=== PATIENT | male | born 1945 | race Caucasian/White ===

== ENCOUNTER 2017-10-02 07:53 | Inpatient (IN) ==
[2017-10-02] MEDS ORDERED: 0.9 % Sodium Chloride 1,000 ML IVC ONE (08:20)
[2017-10-02] MEDS ORDERED: methylPREDNISolone 125 MG/2 ML VIAL IVP ONE (08:20)
[2017-10-02] MEDS ORDERED: Ipratropium/Albuterol Neb 3 ML IH STA ×2 (08:21→09:38)
--- NOTE | 2017-10-02 08:23 | Emergency Department Note ---
Disposition Clinical Impression: Acute exacerbation of chronic obstructive airways disease Disposition: Admitted As Inpatient Condition: Good Referrals: Melanie Garcia, HEELER [Primary Care Provider] - Forms: ED Satisfaction Letter Time of Disposition: 09:41 (Dr Souza) SOB HPI - General Chief Complaint: ED Shortness of Breath/Dyspnea Stated Complaint: shortness of breath Time Seen by Provider: 10/02/17 08:04 Source: patient Mode of arrival: EMS Limitations: no limitations Nursing Notes Reviewed: Yes Vital Signs Reviewed: Yes - History of Present Illness Pt Subjective Complaint: shortness of breath Onset (ago): unknown Severity: unable Consistency/Duration: constant Improves with: oxygen, bronchodilators Known history of: COPD Associated symptoms: Reports: cough, sputum production, palpitations, other ( The patient was seen and evaluated for cough approximately 10 days ago and was discharged home with antibiotics. In April he was admitted for COPD exacerbation and hospitalized for 3-5 days. There is questionable medical noncompliance secondary to patient passing within the past month. The patient does appear disheveled and unkept.). Denies: chest pain, pain with inspiration, fever, wheezing, orthopnea, lower extremity pain, polyuria, polydipsia, parasthesias, hemoptysis, diaphoresis, nausea/vomiting, syncope, abdominal pain, rash, sense of impending doom Treatment prior to arrival: oxygen, bronchodilator Cough present: Yes Cough Description: Involuntary Cough Frequency: Intermittent Sputum production: No - Related Data Home Medications Medication Instructions Recorded Confirmed Fluticasone/Salmeterol [Advair 2 puff IH BID 05/09/17 10/02/17 250-50 Diskus] Lisinopril [Zestril] 10 mg PO DAILY 05/09/17 10/02/17 Metformin HCl [Glucophage] 1,000 mg PO BID 05/09/17 10/02/17 diazePAM [Valium] 10 mg PO BID 05/09/17 10/02/17 Previous Rx's Medication Instructions Recorded Albuterol Sulfate [Albuterol 2 puff IH Q4HR PRN #1 hfa.aer.ad 05/13/17 Inhaler] Fluticasone/Salmeterol [Advair 1 each IH BID #1 blst.w.dev 09/22/17 250-50 Diskus] Allergies Allergy/AdvReac Type Severity Reaction Status Date / Time prednisone AdvReac Mild See Verified 05/09/17 07:36 Comments All systems ED: reviewed and negative except as stated. Review of Systems: As Per HPI Constitutional: Reports: weight change Past Medical History - Past Medical History Medical history: Reports: arthritis, COPD, coronary artery disease, diabetes, GERD, hyperlipidemia, hypertension, myocardial infarction, osteoporosis, other Surgical history: Reports: angioplasty/stent, cholecystectomy Psychiatric history: Reports: anxiety, depression - Social History Smoking Status: Current every day smoker Smokeless Tobacco Status: No Alcohol use: Reports: none Drug use: Reports: none Physical Exam - General Limitations: no limitations General appearance: in distress - Head Head exam: atraumatic, normocephalic, normal inspection - Eye Eye exam: Present: normal appearance, PERRL, EOMI - ENT ENT exam: normal exam, normal oropharynx, mucous membranes moist - Neck Neck exam: Present: normal inspection, full ROM, trachea midline - Chest Chest inspection: Present: normal inspection, symmetric chest wall rise - Respiratory Respiratory exam: Present: prolonged expiratory phase - Expanded Respiratory Exam Location: decreased breath sounds: Left, Right, Upper, Lower - Cardiovascular Cardiovascular exam: Present: tachycardia, normal heart sounds. Absent: JVD - Abdominal Exam Abdominal exam: Present: soft, Non-Tender. Absent: tenderness, distention, guarding, rebound, rigidity - Extremities Exam Extremities exam: Present: normal inspection, full ROM. Absent: tenderness, pedal edema - Neurological Exam Neurological exam: Present: alert, oriented X3, CN II-XII intact - Skin Skin exam: Present: warm, intact, diaphoresis, pallor Course - Reevaluation(s) Reevaluation #1: Moderate improvement of his respiratory status. He does have improved aeration on the left lung field and right upper lung field but still diminished on the right middle lower area. The patient will be given one more breathing treatment and will be reevaluated for inpatient admission. Time: 09:39 Vital Signs Temperature 98.8 F 10/02/17 07:56 Pulse Rate 115 10/02/17 07:56 Respiratory Rate 24 10/02/17 07:56 Blood Pressure 152/65 10/02/17 07:56 O2 Sat by Pulse Oximetry 94 10/02/17 07:56 Temperature 98.8 F 10/02/17 07:56 Pulse Rate 113 10/02/17 09:25 Respiratory Rate 18 10/02/17 09:25 Blood Pressure 152/93 10/02/17 09:25 O2 Sat by Pulse Oximetry 94 10/02/17 09:25 Oxygen Delivery Oxygen Delivery Nasal Cannula Shortness of Breath/Dyspnea - Differential Diagnosis Likely: acute exacerbation of chronic obstructive airways disease, congestive heart failure, pneumonia, pneumothorax, arrhythmia - Medical Records Medical records reviewed: Yes I reviewed the patient's medical records. - Lab Data Result diagrams: 10/02/17 08:53 10/02/17 08:53 Lab Results 10/02/17 10/02/17 10/02/17 Range/Units 08:52 08:53 08:53 WBC 27.2 H (4.3-11.1) K/mcL RBC 4.64 (4.19-5.50) M/mcL Hgb 10.7 L (12.9-16.9) g/dL Hct 36.5 L (37.5-50.1) % MCV 78.7 L (83.0-100.0) fL MCH 23.1 L (28.0-33.3) pg MCHC 29.3 L (31.6-35.5) g/dL RDW 15.9 H (11.5-14.5) % Plt Count 224 (140-400) K/mcL MPV 10.2 (9.4-12.4) fL Sample Site R Radial ABG pH 7.32 (7.32-7.45) pH Units ABG pCO2 58 H (35-45) mmHg ABG pO2 72 L (85-104) mmHg ABG HCO3 30 H (21-27) mEq/L ABG Total CO2 31 H (20-26) mEq/L ABG O2 Saturation 92 L (95-98) % ABG Base Excess 2 (-2 to 3) mEq/L Luis A Test Positive VBG Lactic Acid (0.5-2.2) mmol/L O2 Delivery Device Cannula Inspired O2 2.0 (1-15=lpm [id number]=%) Sodium 139 (136-145) mEq/L Potassium 4.6 (3.5-5.1) mEq/L Chloride 104 (98-107) mEq/L Carbon Dioxide 29 (23-29) mEq/L BUN 22 (8-23) mg/dL Creatinine 0.88 (0.70-1.30) mg/dL Est GFR ( Amer) > 60 (> 60) Est GFR (Non-Af Amer) > 60 (> 60) BUN/Creatinine Ratio 25 (6-26) Glucose 200 H (70-105) mg/dL Calculated Osmolality 297 (280-300) Lactic Acid (0.5-2.2) mmol/L Calcium 9.2 (8.6-10.3) mg/dL Troponin I < 0.03 (< 0.04) ng/mL B-Natriuretic Peptide (Less than 100) pg/mL 10/02/17 10/02/17 10/02/17 Range/Units 08:53 08:53 08:55 WBC (4.3-11.1) K/mcL RBC (4.19-5.50) M/mcL Hgb (12.9-16.9) g/dL Hct (37.5-50.1) % MCV (83.0-100.0) fL MCH (28.0-33.3) pg MCHC (31.6-35.5) g/dL RDW (11.5-14.5) % Plt Count (140-400) K/mcL MPV (9.4-12.4) fL Sample Site ABG pH (7.32-7.45) pH Units ABG pCO2 (35-45) mmHg ABG pO2 (85-104) mmHg ABG HCO3 (21-27) mEq/L ABG Total CO2 (20-26) mEq/L ABG O2 Saturation (95-98) % ABG Base Excess (-2 to 3) mEq/L Luis A Test VBG Lactic Acid 1.1 (0.5-2.2) mmol/L O2 Delivery Device Inspired O2 (1-15=lpm [id number]=%) Sodium (136-145) mEq/L Potassium (3.5-5.1) mEq/L Chloride (98-107) mEq/L Carbon Dioxide (23-29) mEq/L BUN (8-23) mg/dL Creatinine (0.70-1.30) mg/dL Est GFR ( Amer) (> 60) Est GFR (Non-Af Amer) (> 60) BUN/Creatinine Ratio (6-26) Glucose (70-105) mg/dL Calculated Osmolality (280-300) Lactic Acid 1.1 (0.5-2.2) mmol/L Calcium (8.6-10.3) mg/dL Troponin I (< 0.04) ng/mL B-Natriuretic Peptide 136 H (Less than 100) pg/mL - EKG Data EKG attestation: Yes I reviewed and interpreted this EKG. Rate: Reports: tachycardia Rhythm: Reports: NSR [place]/QRS: Reports: normal When compared to previous EKG there are: no significant changes (except rate) Interpretation: Reports: unchanged when compared to prior tracing (date) (), nonspecific ST-T wave changes Critical Care Time Critical Care Time: Yes Total Critical Care Time: 30 Attestation: Critical care performed: Time is exclusive of separately billable procedures. Time includes: direct patient care, patient reassessment, coordination of patient care, interpretation of data (laboratory data, radiology data, and respiratory data), review of patient's medical records, medical consultation and documentation of patient care. Procedures included in critical care time: Procedures excluded from critical care time:
[2017-10-02 08:54] LABS: ABG Base Excess 2 mEq/L (-2 to 3); ABG HCO3 30 mEq/L (21-27); ABG Oxygen Saturation 92 % (95-98); ABG PCO2 58 mmHg (35-45); ABG PH 7.32 pH Units (7.32-7.45); ABG PO2 72 mmHg (85-104); ABG TCO2 31 mEq/L (20-26)
[2017-10-02 08:56] LABS: Hematocrit 36.5 % (37.5-50.1); Hemoglobin 10.7 g/dL (12.9-16.9); Mean Corpuscular HGB Conc 29.3 g/dL (31.6-35.5); Mean Corpuscular Hemoglobin 23.1 pg (28.0-33.3); Mean Corpuscular Volume 78.7 fL (83.0-100.0); Mean Platelet Volume 10.2 fL (9.4-12.4); Platelet Count 224 K/mcL (140-400); Red Blood Count 4.64 M/mcL (4.19-5.50); Red Cell Distribution Width 15.9 % (11.5-14.5)
[2017-10-02 09:19] LABS: Troponin I < 0.03 ng/mL (< 0.04)
[2017-10-02] MEDS ORDERED: Levofloxacin 750 MG/150 ML 750 MG/150 ML BAG IVPB ONE (09:30)
[2017-10-02 09:38] LABS: BUN/Creatinine Ratio 25 (6-26); Blood Urea Nitrogen 22 mg/dL (8-23); Calcium 9.2 mg/dL (8.6-10.3); Carbon Dioxide 29 mEq/L (23-29); Chloride 104 mEq/L (98-107); Glucose 200 mg/dL (70-105); Osmolality,Calculated 297 (280-300); Potassium 4.6 mEq/L (3.5-5.1); Sodium 139 mEq/L (136-145); eGFR For African Americans > 60 (> 60); eGFR For Non-African Americans > 60 (> 60)
[2017-10-02 09:40] LABS: Bilirubin,Urine Negative (Negative); Blood,Urine Trace-lysed (Negative); Clarity,Urine Clear (Clear); Color,Urine Yellow (Yellow); Glucose,Urine (UA) 100 mg/dL (Normal); Ketones,Urine Negative (Negative); Leukocyte Esterase,Urine Negative (Negative); Nitrite,Urine Negative (Negative); Protein,Urine 100 mg/dL (Neg-Trace); Specific Gravity,Urine >= 1.030 (1.010-1.025); Urobilinogen,Urine Normal (Normal)
[2017-10-02 09:58] LABS: Bacteria,Urine Few per hpf (None-Few); Mucus,Urine Few (Few); RBC,Urine 0-3 per hpf (0-3); Squamous Epithelial Cell,Urine Few per lpf (None-Few); WBC,Urine 0-3 per hpf (0-3)
[2017-10-02 10:04] LABS: Lymphocytes # 0.5 K/mcL (0.6-4.6); Monocytes # 1.6 K/mcL (0.0-1.3)
[2017-10-02 10:05] LABS: Platelet Estimate Normal (Normal)
[2017-10-02] MEDS ORDERED: *HR* HYDROcodone/Acet 5/325 mg TABLET PO PRN (11:24)
[2017-10-02] MEDS ORDERED: Ketorolac 30 MG/ML VIAL IVP PRN (11:24)
[2017-10-02] MEDS ORDERED: Naloxone 0.4 MG/ML INJ IVP PRN (11:24)
[2017-10-02] MEDS ORDERED: Acetaminophen 325 MG TABLET PO PRN (11:24)
--- NOTE | 2017-10-02 12:44 | Internal Med History&Physical ---
Date of Encounter: 10/02/17 Time of Encounter: 12:10 Assessment and Plan (1) Acute exacerbation of chronic obstructive airways disease Current visit: Yes Status: Acute He was started on Levaquin and Solu-Medrol in emergency room. We will continue these. We will order chest CT to further evaluate. (2) Anemia Current visit: No Status: Chronic We will order anemia testing in a.m. Qualifiers: Anemia type: iron deficiency Iron deficiency anemia type: other iron deficiency Qualified Code(s): D50.8 - Other iron deficiency anemias (3) Diabetes mellitus Current visit: No Status: Chronic Will order hemoglobin A1c in a.m. Qualifiers: Diabetes mellitus type: type 2 Diabetes mellitus terminal system operator insulin use: without skilled nursing use Diabetes mellitus complication status: without complication Qualified Code(s): E11.9 - Type 2 diabetes mellitus without complications (4) Hypertension Current visit: Yes Status: Chronic Continue lisinopril and monitor blood pressure. Qualifiers: Hypertension type: essential hypertension Qualified Code(s): I10 - Essential (primary) hypertension Internal Medicine - H&P: HPI Chief complaint: Dyspnea Admitted From: Emergency Dept Plans for Post Hospital Care: Home History of present illness: Mr. Wilson is a 71 year old male who came to emergency room after developing worsening dyspnea after arising this morning. He reports dyspnea had onset approximately 2 weeks ago. He came to [facility] emergency room 07/22/2017 with dyspnea and was diagnosed with exacerbation of COPD and prescribed doxycycline for 5 days. He was also given Advair 250/50 and Ventolin inhalers. He reports a cough productive of clear sputum. He denies hemoptysis. He was evaluated emergency room today and felt to have exacerbation of COPD and was admitted to [facility] floor. His respiratory history is significant for having smoked since age 10 up to 5 packs per day. He has not had PFTs and does not use home oxygen. He has not been tested for sleep apnea. Past Med Surg Social Fam HX - Past Medical History Medical history: arthritis, COPD, coronary artery disease, diabetes, GERD, hyperlipidemia, hypertension, myocardial infarction, osteoporosis, other Psychiatric history: anxiety, depression - Past Surgical History Surgical History: angioplasty/stent, cholecystectomy - Social History Smoking Status: Current every day smoker Smokeless Tobacco Status: No Alcohol use: none Drug use: none - Family History Father Hx Family Cardiac Disorders: Yes (heart attack) Hx Family Respiratory Disorders: Yes (TB) Mother Hx Family Endocrine Disorder: Yes (DM) Internal Medicine - H&P: Meds Fluticasone/Salmeterol [Advair 250-50 Diskus] 2 puff IH BID 05/09/17 [History] Lisinopril [Zestril] 10 mg PO DAILY 05/09/17 [History] Metformin HCl [Glucophage] 1,000 mg PO BID 05/09/17 [History] diazePAM [Valium] 10 mg PO BID 05/09/17 [History] Albuterol Sulfate [Albuterol Inhaler] 2 puff IH Q4HR PRN #1 hfa.aer.ad 05/13/17 [Rx] Fluticasone/Salmeterol [Advair 250-50 Diskus] 1 each IH BID #1 blst.w.dev [Rx] 3 Allergy/AdvReac Type Severity Reaction Status Date / Time prednisone AdvReac Mild See Verified 05/09/17 07:36 Comments All Systems PM: A 10-system review of systems was performed and is negative for pertinent findings except as documented above in the HPI. Review of systems: Gen.: His weight has minimally decreased from 67.676 kg 08/08/2015 to 66.224 kg at present. Cardiovascular: He has history of hypertension. He has known ASHD status post [place] in 2009 with 2 stents placed at [facility]. He has not had further stress test or heart cath. He gets occasional discomfort in his chest on exertion. Denies heart failure DVT or pulmonary illness. Respiratory: As per history of present illness GI: He has GERD and had a cholecystectomy in the past. He denies disorders of his liver or exocrine pancreas. : He had kidney stone in the 1970s without recurrence. Denies other kidney bladder prostate disorders. Neurologic: Denies strokes or seizures. Endocrine: He was diagnosed with DM 2 in 1994. He has hyperlipidemia but no known thyroid disease. Hematology/oncology: He denies blood disorders or cancers. He has had anemia in the past. Psychiatric: He denies anxiety depression or other mental health issues. He states he uses Valium because had a "nervous breakdown" several years ago [place] skeletal: He has arthritis but no known gout or osteoporosis. - Constitutional Vitals: Temp Pulse Resp BP Pulse Ox 98.7 F 97 16 152/79 96 10/02/17 10:41 10/02/17 10:41 10/02/17 10:41 10/02/17 10:41 10/02/17 10:41 Exam: Gen.: He is a well-developed well-nourished male lying in bed who appears in no acute distress at present time HEENT: Head is atraumatic and normal cephalic. Eyes: EOMI. There is no scleral icterus. Mouth: Mucosa is moist. Neck: Supple and nontender. There is no thyromegaly or adenopathy noted. Heart: Regular without murmurs gallops or ectopics Lungs: He has diminished breath sounds diffusely. No wheezes or crackles are heard. Abdomen: Soft and nontender. No masses or guarding are noted. Extremities: There is no cyanosis edema or clubbing noted. Dorsalis pedis and posttibial pulses are 1-2 over 2 bilaterally. Neurologic: Mental status: He is talkative and seems to be a reliable historian. His answers seem accurate but mentation appears slowed. Cranial nerves: Smile is symmetric. Forehead wrinkles bilaterally. Tongue protrudes midline. EOMI. Motor: There is no pronator drift. Cerebellar: Finger to nose is intact bilaterally. Skin: Warm and dry. Hygiene is poor Internal Med - H&P Results - Labs CBC & Chem 7: 10/02/17 08:53 10/02/17 08:53
[2017-10-02] MEDS: *HR* Metformin 500 MG TABLET PO SCH ×2 (13:44→20:19)
[2017-10-02] MEDS ORDERED: NON-FORMULARY MEDICATION 1 EACH EACH (Fluticasone/Salmeterol [Advair 250-50 Diskus] 1 EACH IH SCH (21:00)
[2017-10-02] MEDS: Budesonide/Formoterol 80/4.5 MDI IH SCH ×2 (21:52→21:57)
[2017-10-03 06:34] LABS: Basophils % 0.1 %; Hematocrit 30.4 % (37.5-50.1); Immature Granulocytes % 0.5 % (0-4); Lymphocytes % 7.4 %; Mean Corpuscular HGB Conc 29.6 g/dL (31.6-35.5); Mean Corpuscular Hemoglobin 22.8 pg (28.0-33.3); Mean Corpuscular Volume 77.2 fL (83.0-100.0); Mean Platelet Volume 10.4 fL (9.4-12.4); Monocytes # 0.9 K/mcL (0.0-1.3); Monocytes % 6.8 %; Neutrophils # 11.3 K/mcL (1.6-8.9); Platelet Count 205 K/mcL (140-400); Red Blood Count 3.94 M/mcL (4.19-5.50); Red Cell Distribution Width 15.9 % (11.5-14.5); Segmented Neutrophils % 85.2 %
[2017-10-03] MEDS: Lisinopril 20 MG TABLET PO SCH (08:07)
[2017-10-03] MEDS: *HR* Metformin 500 MG TABLET PO SCH ×2 (08:08→17:33)
[2017-10-03] MEDS: diazePAM 5 MG TABLET PO SCH (08:08)
--- NOTE | 2017-10-03 10:06 | Internal Med Progress Note ---
Date of Encounter: 10/03/17 Time of Encounter: 09:55 - Assessment and plan (1) Pneumonia Current Visit: Yes Status: Acute Assessment and plan: October 03. Continue Levaquin. Qualifiers: Pneumonia type: due to unspecified organism Laterality: bilateral Lung location: lower lobe of lung Qualified Code(s): J18.1 - Lobar pneumonia, unspecified organism (2) Acute exacerbation of chronic obstructive airways disease Current Visit: Yes Status: Acute Assessment and plan: October 03. Continue Levaquin. Will give lactobacillus and prednisone. We will check room air oximetry on 6 minute walk in a.m. (3) Anemia Current Visit: No Status: Chronic Assessment and plan: October 03. Anemia testing pending. Qualifiers: Anemia type: iron deficiency Iron deficiency anemia type: other iron deficiency Qualified Code(s): D50.8 - Other iron deficiency anemias (4) Diabetes mellitus Current Visit: No Status: Chronic Assessment and plan: October 03. Hemoglobin A1c pending. Qualifiers: Diabetes mellitus type: type 2 Diabetes mellitus nursing home insulin use: without choral teacher use Diabetes mellitus complication status: without complication Qualified Code(s): E11.9 - Type 2 diabetes mellitus without complications (5) Hypertension Current Visit: Yes Status: Chronic Assessment and plan: October 03. Continue lisinopril and monitor blood pressure. Qualifiers: Hypertension type: essential hypertension Qualified Code(s): I10 - Essential (primary) hypertension (6) Aortic aneurysm Current Visit: Yes Status: Chronic Assessment and plan: October 03. Abdominal CT showed 3.2 cm AAA. Recommendation for repeat scan in 3 years. Qualifiers: Aortic location: abdominal aorta Presence of rupture: without rupture Qualified Code(s): I71.4 - Abdominal aortic aneurysm, without rupture - Subjective Interval history: October 03. He has no new complaints and feels better. - Constitutional Vitals: Temp Pulse Resp BP Pulse Ox 97.7 F 77 16 130/69 98 10/03/17 06:56 10/03/17 06:56 10/03/17 06:56 10/03/17 06:56 10/03/17 06:56 Exam: He is resting comfortably in bed and appears in no acute distress. His affect is bright and cheerful. I reviewed his medications. I discussed pertinent lab results and CT report findings with him. Internal Medicine: Result - Labs CBC & Chem 7: 10/03/17 06:00 10/02/17 08:53 Labs: Short CBC 10/03/17 Range/Units 06:00 WBC 13.3 H D (4.3-11.1) K/mcL Hgb 9.0 L D (12.9-16.9) g/dL Hct 30.4 L (37.5-50.1) % Plt Count 205 (140-400) K/mcL Neutrophils # 11.3 H (1.6-8.9) K/mcL - ABG Interpretation ABG results: ABG ABG pH 7.32 pH Units (7.32-7.45) 10/02/17 08:52 ABG pCO2 58 mmHg (35-45) H 10/02/17 08:52 ABG pO2 72 mmHg (85-104) L 10/02/17 08:52 ABG O2 Saturation 92 % (95-98) L 10/02/17 08:52 - Impressions Impressions Chest CT 10/02/17 12:53 IMPRESSION: 1. Multifocal pneumonia in the lower lungs 2. Pulmonary emphysema 3. Calcific Coronary atherosclerosis 4. Nonobstructing right nephrolithiasis 5. Stable left adrenal nodule compatible with an adenoma 6. Colonic diverticulosis 7. Prostatic enlargement 8. Stable 3.2 cm abdominal aortic aneurysm RECOMMENDATIONS: Managing Abdominal Aortic Aneurysms 2.6-2.9 cm: Every 5 years* 3.0-3.4 cm: Every 3 years. 3.5-3.9 cm: Every 1 year. 4.0-4.4 cm: Every 1 year. Recommend vascular consultation. 4.5-5.4 cm: Every 6 months. Recommend vascular consultation. Greater than or equal to 5.5 cm: Referral to vascular surgeon. *For abdominal aortas with maximum diameter of 2.6-2.9 cm meeting criteria for AAA (>50% of proximal normal segment). Reference: J Vasc Surg. 2009 Feb;50(4 Suppl):S2-49 D/ / Jignesh Burns MD / Jignesh Burns MD Interpreting Provider: Jignesh Burns MD Abdomen/Pelvis CT 10/02/17 12:54 IMPRESSION: 1. Multifocal pneumonia in the lower lungs 2. Pulmonary emphysema 3. Calcific Coronary atherosclerosis 4. Nonobstructing right nephrolithiasis 5. Stable left adrenal nodule compatible with an adenoma 6. Colonic diverticulosis 7. Prostatic enlargement 8. Stable 3.2 cm abdominal aortic aneurysm RECOMMENDATIONS: Managing Abdominal Aortic Aneurysms 2.6-2.9 cm: Every 5 years* 3.0-3.4 cm: Every 3 years. 3.5-3.9 cm: Every 1 year. 4.0-4.4 cm: Every 1 year. Recommend vascular consultation. 4.5-5.4 cm: Every 6 months. Recommend vascular consultation. Greater than or equal to 5.5 cm: Referral to vascular surgeon. *For abdominal aortas with maximum diameter of 2.6-2.9 cm meeting criteria for AAA (>50% of proximal normal segment). Reference: J Vasc Surg. 2008;50(4 Suppl):S2-49 D/ / Jignesh Burns MD / Jignesh Burns MD Interpreting Provider: Jignesh Burns MD Consult Discharge Plan - Plan Referrals: Melanie Garcia, DIET COUNSELOR [Primary Care Provider] - 1 week
[2017-10-03 10:26] LABS: % Iron Saturation 3 % (20-55); Ferritin 31 ng/ml (20-250); Iron 10 mcg/dL (65-175); Transferrin 245 mg/dL (203-362)
[2017-10-03] MEDS: Budesonide/Formoterol 80/4.5 MDI IH SCH ×2 (10:33→21:54)
[2017-10-03 10:53] LABS: Folate 15.8 ng/mL (3.0-16.0)
[2017-10-03] MEDS ORDERED: Levofloxacin 500 MG/100 ML 500 MG/100 ML BAG IVPB SCH (11:00)
[2017-10-03 14:05] LABS: Estimated Average Glucose 143 mg/dl; Hemoglobin A1C 6.6 %
[2017-10-03] MEDS ORDERED: D5% in Water 1,000 ML IVC PRN (15:32)
[2017-10-03] MEDS ORDERED: *HR* Dextrose 50 % in Water (Syg) 50 ML SYRINGE IVP PRN (15:32)
[2017-10-03] MEDS ORDERED: Dextrose Gel 15 GM/37.5 ML TUBE PO PRN ×2 (15:32)
[2017-10-03] MEDS ORDERED: Iron Sucrose Complex 400 MG in 0.9 % Sodium Chloride 250 ML IVPB ONE (15:59)
[2017-10-03] MEDS ORDERED: Cyanocobalamin (B-12) 1,000 MCG/ML VIAL IM ONE (15:59)
[2017-10-03] MEDS: Insulin LISPRO 300 UNITS/3 ML VIAL SQ SCH (17:34)
[2017-10-03] MEDS: predniSONE 10 MG TABLET PO SCH (17:34)
[2017-10-03] MEDS: Lactobacillus 1 EACH CAP.SPRINK PO SCH (20:59)
[2017-10-04] MEDS ORDERED: *HR* Enoxaparin 40 MG/0.4 ML SYRINGE SQ SCH (06:00)
[2017-10-04 06:30] LABS: Basophils % 0.3 %; Eosinophils # 0.1 K/mcL (0.0-0.6); Eosinophils % 0.8 %; Hematocrit 30.5 % (37.5-50.1); Hemoglobin 8.9 g/dL (12.9-16.9); Immature Granulocytes % 0.5 % (0-4); Lymphocytes # 1.3 K/mcL (0.6-4.6); Lymphocytes % 13.8 %; Mean Corpuscular HGB Conc 29.2 g/dL (31.6-35.5); Mean Corpuscular Hemoglobin 22.9 pg (28.0-33.3); Mean Corpuscular Volume 78.4 fL (83.0-100.0); Mean Platelet Volume 10.1 fL (9.4-12.4); Monocytes # 0.6 K/mcL (0.0-1.3); Monocytes % 6.5 %; Neutrophils # 7.4 K/mcL (1.6-8.9); Platelet Count 205 K/mcL (140-400); Red Blood Count 3.89 M/mcL (4.19-5.50); Red Cell Distribution Width 15.9 % (11.5-14.5); Segmented Neutrophils % 78.1 %
[2017-10-04 06:42] VITALS: BP 149/81
[2017-10-04] MEDS: Insulin LISPRO 300 UNITS/3 ML VIAL SQ SCH (07:59)
--- NOTE | 2017-10-04 07:59 | Electrocardiograph Report ---
[address] [id number] Test Date: 2017-10-02 Pat Name: Javan Wilson Department: [id number] Room: [facility] Gender: M Machine Burrer: [id number] : 1945 Requested By: Raf Bowles Order Number: [id number] Reading MD: Riley Hurley Measurements Intervals [place] Rate: 115 P: [place]: 0 QRS: 79 QRSD: 108 T: 89 QT: 291 QTc: 359 Interpretive Statements SINUS TACHYCARDIA Intraventricular conduction delay MODERATE T-WAVE ABNORMALITY, CONSIDER INFERIOR ISCHEMIA Electronically Signed On 10-04-2017 7:58:04 EDT by Riley Hurley
[2017-10-04] MEDS: Lisinopril 20 MG TABLET PO SCH (09:11)
[2017-10-04] MEDS: *HR* Metformin 500 MG TABLET PO SCH (09:11)
[2017-10-04] MEDS: diazePAM 5 MG TABLET PO SCH (09:11)
[2017-10-04] MEDS: Lactobacillus 1 EACH CAP.SPRINK PO SCH (09:11)
[2017-10-04] MEDS: predniSONE 10 MG TABLET PO SCH (09:12)
--- NOTE | 2017-10-04 09:14 | Discharge Summary ---
Date of Encounter: 10/04/17 Time of Encounter: 08:55 - Discharge Diagnosis (1) Pneumonia Priority: Primary Status: Acute Qualifiers: Pneumonia type: due to unspecified organism Laterality: bilateral Lung location: lower lobe of lung Qualified Code(s): J18.1 - Lobar pneumonia, unspecified organism (2) Acute exacerbation of chronic obstructive airways disease Priority: Secondary Status: Acute (3) Anemia Priority: Secondary Status: Chronic Qualifiers: Anemia type: iron deficiency Iron deficiency anemia type: other iron deficiency Qualified Code(s): D50.8 - Other iron deficiency anemias (4) Diabetes mellitus Priority: Secondary Status: Chronic Qualifiers: Diabetes mellitus type: type 2 Diabetes mellitus exterminator termite insulin use: without exterminator termite use Diabetes mellitus complication status: without complication Qualified Code(s): E11.9 - Type 2 diabetes mellitus without complications (5) Hypertension Priority: Secondary Status: Chronic Qualifiers: Hypertension type: essential hypertension Qualified Code(s): I10 - Essential (primary) hypertension (6) Aortic aneurysm Priority: Secondary Status: Chronic Qualifiers: Aortic location: abdominal aorta Presence of rupture: without rupture Qualified Code(s): I71.4 - Abdominal aortic aneurysm, without rupture Hospital course: Mr. Wilson is a 72 year old male who came to emergency room after developing worsening dyspnea after arising this morning. He reports dyspnea had onset approximately 2 weeks ago. He came to [facility] emergency room 07/22/2017 with dyspnea and was diagnosed with exacerbation of COPD and prescribed doxycycline for 5 days. He was also given Advair 250/50 and Ventolin inhalers. He reports a cough productive of clear sputum. He denies hemoptysis. He was evaluated emergency room today and felt to have exacerbation of COPD and was admitted to [facility] floor. Initial orders were written by the emergency room physician. I saw him on October 02 and performed a history and physical. I ordered chest, abdomen, and pelvis CT for further evaluation. There were bilateral infiltrates seen. No other worrisome pathology was noted. A 3.2 cm AAA was noted. Recommendation for three-year follow-up was made. He was placed on Levaquin and had clinical improvement with WBC normalizing the day of discharge and resolution of left shift on differential. He will continue with antibiotic and probiotic for 3 additional days at discharge. Room air oximetry showed saturation decreasing to 87% on ambulation. He became dyspneic and required reinstitution of oxygen immediately for safety and comfort. He will continue on oxygen at discharge at 2 L/m by nasal cannula with portable gas and concentrator. Qualifying diagnosis for this is COPD with hypoxemia. Anemia testing showed iron 10, transferrin saturation 3%, transferrin 245, ferritin 31, B12 139, and folate 15.8. He received a B12 injection and IV ferrous sucrose. He will continue with oral B12, ferrous sulfate, and vitamin C at discharge. On October 04 he was stable for discharge home. He will follow with his PCP within 1 week. - Time Spent with Patient Total time spent providing and/or coordinating discharge services: - Discharge Medications Prescriptions: Ascorbic Acid [Vitamin C] 500 mg PO DAILY #30 tablet Cyanocobalamin (B-12) [Vitamin B12] 1,000 mcg PO DAILY #30 tablet Ferrous Sulfate 325 mg PO DAILY #30 tablet Lactobacillus [Culturelle] 1 each PO BID #6 cap.sprink levoFLOXacin [Levaquin] 500 mg PO DAILY #3 tablet Home Medications: Fluticasone/Salmeterol [Advair 250-50 Diskus] 2 puff IH BID 05/09/17 [History] Lisinopril [Zestril] 10 mg PO DAILY 05/09/17 [History] Metformin HCl [Glucophage] 1,000 mg PO BID 05/09/17 [History] Albuterol Sulfate [Albuterol Inhaler] 2 puff IH Q4HR PRN #1 hfa.aer.ad 05/13/17 [Rx] Fluticasone/Salmeterol [Advair 250-50 Diskus] 1 each IH BID #1 blst.w.dev [Rx] Ascorbic Acid [Vitamin C] 500 mg PO DAILY #30 tablet 10/04/17 [Rx] Cyanocobalamin (B-12) [Vitamin B12] 1,000 mcg PO DAILY #30 tablet 10/04/17 [Rx] Ferrous Sulfate 325 mg PO DAILY #30 tablet 10/04/17 [Rx] Lactobacillus [Culturelle] 1 each PO BID #6 cap.sprink 10/04/17 [Rx] diazePAM [Valium] 5 mg PO DAILY 30 Days #15 10/04/17 [Rx] levoFLOXacin [Levaquin] 500 mg PO DAILY #3 tablet 10/04/17 [Rx] Allergies/Adverse Reactions: 3 Allergy/AdvReac Type Severity Reaction Status Date / Time prednisone AdvReac Mild See Verified 05/09/17 07:36 Comments Date of admission: 10/03/17 10:14 Primary care physician: Melanie Garcia CNP - Constitutional Vitals: Temp Pulse Resp BP Pulse Ox 98.8 F 77 17 149/81 94 10/04/17 06:00 10/04/17 06:00 10/04/17 06:00 10/04/17 06:00 10/04/17 08:35 - Patient Status Disposition: Home, Self-Care Condition: Good Overall status at discharge: patient is progressing back to baseline - Discharge Instructions Follow Up With: Melanie Garcia CNP [Primary Care Provider] - 1 week - Diet and Activity Activity: resume usual activities as tolerated, wear oxygen at all times Diet: diabetic diet
[2017-10-04] MEDS: Budesonide/Formoterol 80/4.5 MDI IH SCH (10:43)
== END 2017-10-04 13:00 | disposition home or self-care (01) | DRG 190 ==
LOC: EMEROOPIK 07:53 → INPPIK 07:53
PROVIDERS: ADMIT Internal Medicine; ATTEND Internal Medicine

== ENCOUNTER 2018-06-26 19:30 | Observation (INO) ==
--- NOTE | 2018-06-26 19:31 | Emergency Department Note ---
Disposition Clinical Impression: Hematuria, Vertigo Disposition: Home, Self-Care Condition: Good Instructions: Vertigo (ED), Acute Hematuria (ED) Referrals: Melanie Garcia [facility]ERIFFS [Primary Care Provider] - (Call Friday for appointment) Forms: ED Satisfaction Letter Time of Disposition: 21:57 Altered Mental Status HPI - General Chief Complaint: ED Altered Mental Status Stated Complaint: altered mental status Time Seen by Provider: 06/26/18 19:31 Source: patient, EMS Mode of arrival: EMS Limitations: no limitations Nursing Notes Reviewed: Yes Vital Signs Reviewed: Yes - History of Present Illness HPI Narrative: 72-year-old gentleman is brought in by ambulance today for dizziness. He states he fell at the world was spinning was off balance and he threw up once while he was at the [facility] patient had to buy some cigarettes. He states prior to that he had not felt too bad until he was driving. He said episodes of vertigo in the past says never had them worked up before. He states is not feeling that way now. He states he has had some diarrhea and has been appear for the last couple of weeks off and on for the abdominal pain and not feeling well. They will come up with much. He had negative CT of his abdomen pelvis a few weeks ago. MD complaint: altered mental status - Related Data Home Medications Medication Instructions Recorded Confirmed Lisinopril [Zestril] 10 mg PO DAILY 05/09/17 06/20/18 Metformin HCl [Glucophage] 1,000 mg PO BID 05/09/17 06/20/18 Previous Rx's Medication Instructions Recorded diazePAM [Valium] 5 mg PO DAILY 30 Days #15 10/04/17 Albuterol Sulfate [Albuterol 2 puff IH Q6HR PRN #1 hfa.aer.ad 06/20/18 Inhaler] Azithromycin [Azithromycin 6-Tab 250 mg PO PER PKG DI #6 tab 06/20/18 Pack] Brompheniramine/Pseudoephed/Dm 5 ml PO Q4-6H PRN #120 syrup 06/20/18 [Bromfed Dm Cough Syrup] Cetirizine HCl [Zyrtec] 10 mg PO DAILY #14 tablet 06/20/18 Allergies Allergy/AdvReac Type Severity Reaction Status Date / Time prednisone AdvReac Mild See Verified 06/16/18 13:38 Comments Review of Systems: All other systems are negative except as noted/marked Chart generated with voice recognition software Nursing notes reviewed Old records reviewed Past Medical History - Past Medical History Attestation: Yes The following information was validated with the patient. Source: patient, old records reviewed, nursing notes reviewed Medical history: Reports: arthritis, COPD, coronary artery disease, diabetes, GERD, hyperlipidemia, hypertension, myocardial infarction, osteoporosis, other (Diverticulosis) Surgical history: Reports: angioplasty/stent, cholecystectomy Psychiatric history: Reports: anxiety, depression - Social History Smoking Status: Current every day smoker Smokeless Tobacco Status: No Alcohol use: Reports: none Drug use: Reports: none Physical Exam Physical exam General: NAD, VSS Head: normocephalic, atraumatic Eyes: EOMI, PERRLA no nystagmus mouth: moist mucous membranes Neck: NO CLA, Supple Chest wall: normal rise, no crepitus, no deformity noted Lungs: moving air well, no distress Heart: RRR, Abd: soft, mild tenderness diffusely this is not a surgical abdomen BS normal : deferred MSK: strength equal in all four extremities Ext: moves all four extremities, no obvious deformities Skin: cap refill normal, warm, dry neuro : CN2-12 grossly intact, A&Ox3 GCS 15 Psych: normal affect, not anxious Course Vital Signs Temperature 98.1 F 06/26/18 19:31 Pulse Rate 85 06/26/18 19:31 Respiratory Rate 22 06/26/18 19:31 Blood Pressure 97/55 06/26/18 19:31 O2 Sat by Pulse Oximetry 94 06/26/18 19:31 Temperature 98.1 F 06/26/18 19:31 Pulse Rate 84 06/26/18 21:28 Respiratory Rate 24 06/26/18 21:28 Blood Pressure 113/61 06/26/18 21:28 O2 Sat by Pulse Oximetry 97 06/26/18 21:28 Oxygen Delivery Oxygen Delivery Room Air Altered Mental Status - MDM Narrative Medical decision making narrative: On arrival patient was alert and oriented appropriate answering questions combined a little bit of diffuse abdominal pain but had no pinpoint tenderness in his abdomen. He has been sick for couple weeks and he was having some episodes of what sounds like vertigo and then he threw up. She states since he threw up he has been feeling better. We did a workup today to rule out any other cause of altered mental status as the EMS stated when they first arrived he was confused as to where his car was running in his keys were in his pocket. He has not been confused for us here. He is unsteady on his feet while we have been reassessing him. He was able to get up and go to the bedside commode and then stand up to urinate and the urinal. He does have some hematuria and we will discuss this and have him follow-up with his primary care physician about this. Otherwise his lab work is essentially unremarkable. He is alert and oriented and appropriate at this time I think the fiber him to go home I do not see any obvious life-threatening illness at this time. He is calling his son to come get him. The patient to try to walk and he got very dizzy again. He had not been complaining of dizziness they will time he been here. We are him some meclizine and had him lay back down. The plan decided is probably best for him to stay tonight and take his dizziness under control as I did not want him to go home on meclizine and be driving and be drowsy. Patient was agreeable with this. I spoke with Dr. Sneed on-call hospitalist this evening who agreed to keep the patient overnight. - Medical Records Medical records reviewed: Yes I reviewed the patient's medical records. - Lab Data Lab results reviewed: Yes I reviewed the patient's lab results. Result diagrams: 06/26/18 19:56 06/26/18 19:56 Lab Results 06/26/18 06/26/18 06/26/18 Range/Units 19:51 19:56 19:56 WBC 10.2 (4.3-11.1) K/mcL RBC 4.75 (4.19-5.50) M/mcL Hgb 12.4 L (12.9-16.9) g/dL Hct 39.4 (37.5-50.1) % MCV 82.9 L (83.0-100.0) fL MCH 26.1 L (28.0-33.3) pg MCHC 31.5 L (31.6-35.5) g/dL RDW 13.5 (11.5-14.5) % Plt Count 223 (140-400) K/mcL MPV 10.1 (9.4-12.4) fL Immature Gran % 0.4 (0-4) % Seg Neutrophils % 90.2 % Lymphocytes % 4.9 % Monocytes % 4.0 % Eosinophils % 0.2 % Basophils % 0.3 % Neutrophils # 9.2 H (1.6-8.9) K/mcL Lymphocytes # 0.5 L (0.6-4.6) K/mcL Monocytes # 0.4 (0.0-1.3) K/mcL Eosinophils # 0.0 (0.0-0.6) K/mcL Basophils # 0.0 (0.0-0.2) K/mcL PT 13.7 H (9.4-12.1) Seconds INR 1.2 APTT 31.4 (26.0-36.0) Seconds Sample Site R Radial ABG pH 7.41 (7.32-7.45) pH Units ABG pCO2 43 (35-45) mmHg ABG pO2 60 L (85-104) mmHg ABG HCO3 27 (21-27) mEq/L ABG Total CO2 29 H (20-26) mEq/L ABG O2 Saturation 91 L (95-98) % ABG Base Excess 2 (-2 to 3) mEq/L Luis A Test Positive O2 Delivery Device Room Air Sodium (136-145) mEq/L Potassium (3.5-5.1) mEq/L Chloride (98-107) mEq/L Carbon Dioxide (23-29) mEq/L BUN (8-23) mg/dL Creatinine (0.70-1.30) mg/dL Est GFR ( Amer) (> 60) Est GFR (Non-Af Amer) (> 60) BUN/Creatinine Ratio (6-26) Glucose (70-105) mg/dL Calculated Osmolality (280-300) Lactic Acid (0.5-2.2) mmol/L Calcium (8.6-10.3) mg/dL Magnesium (1.6-2.6) mg/dL Total Bilirubin (0.3-1.0) mg/dL Direct Bilirubin (0.0-0.2) mg/dL Indirect Bilirubin (0.0-1.2) mg/dL AST (13-39) Units/L ALT (7-52) Units/L Alkaline Phosphatase (34-104) Units/L Ammonia (16-53) mcmol/L Troponin I (< 0.04) ng/mL Serum Total Protein (6.4-8.9) g/dL Albumin (3.5-5.7) g/dL Globulin (2.4-3.5) g/dL Albumin/Globulin Ratio (1.1-2.2) Lipase (11-82) Units/L Urine Color (Yellow) Urine Clarity (Clear) Urine pH (5.0-8.0) pH Units Ur Specific [place] (1.010-1.025) Urine Protein (Neg-Trace) mg/dL Urine Glucose (UA) (Normal) mg/dL Urine Ketones (Negative) mg/dL Urine Blood (Negative) Urine Nitrite (Negative) Urine Bilirubin (Negative) Urine Urobilinogen (Normal) mg/dL Ur Leukocyte Esterase (Negative) Urine Microscopic RBC (0-3) per hpf Ur Culture Indicated? (NO) Salicylates (15.0-30.0) mg/dL Acetaminophen (10-20) mcg/mL Ur Drug Screen Interp Ethyl Alcohol (Less than 10) mg/dL 06/26/18 06/26/18 06/26/18 Range/Units 19:56 19:56 19:56 WBC (4.3-11.1) K/mcL RBC (4.19-5.50) M/mcL Hgb (12.9-16.9) g/dL Hct (37.5-50.1) % MCV (83.0-100.0) fL MCH (28.0-33.3) pg MCHC (31.6-35.5) g/dL RDW (11.5-14.5) % Plt Count (140-400) K/mcL MPV (9.4-12.4) fL Immature Gran % (0-4) % Seg Neutrophils % % Lymphocytes % % Monocytes % % Eosinophils % % Basophils % % Neutrophils # (1.6-8.9) K/mcL Lymphocytes # (0.6-4.6) K/mcL Monocytes # (0.0-1.3) K/mcL Eosinophils # (0.0-0.6) K/mcL Basophils # (0.0-0.2) K/mcL PT (9.4-12.1) Seconds INR APTT (26.0-36.0) Seconds Sample Site ABG pH (7.32-7.45) pH Units ABG pCO2 (35-45) mmHg ABG pO2 (85-104) mmHg ABG HCO3 (21-27) mEq/L ABG Total CO2 (20-26) mEq/L ABG O2 Saturation (95-98) % ABG Base Excess (-2 to 3) mEq/L Luis A Test O2 Delivery Device Sodium 134 L (136-145) mEq/L Potassium 4.5 (3.5-5.1) mEq/L Chloride 97 L (98-107) mEq/L Carbon Dioxide 31 H (23-29) mEq/L BUN 13 (8-23) mg/dL Creatinine 0.94 (0.70-1.30) mg/dL Est GFR ( Amer) > 60 (> 60) Est GFR (Non-Af Amer) > 60 (> 60) BUN/Creatinine Ratio 14 (6-26) Glucose 221 H (70-105) mg/dL Calculated Osmolality 285 (280-300) Lactic Acid (0.5-2.2) mmol/L Calcium 8.8 (8.6-10.3) mg/dL Magnesium 1.1 L (1.6-2.6) mg/dL Total Bilirubin 0.8 (0.3-1.0) mg/dL Direct Bilirubin 0.1 (0.0-0.2) mg/dL Indirect Bilirubin 0.7 (0.0-1.2) mg/dL AST 10 L (13-39) Units/L ALT 7 (7-52) Units/L Alkaline Phosphatase 72 (34-104) Units/L Ammonia 39 (16-53) mcmol/L Troponin I < 0.03 (< 0.04) ng/mL Serum Total Protein 6.7 (6.4-8.9) g/dL Albumin 3.5 (3.5-5.7) g/dL Globulin 3.2 (2.4-3.5) g/dL Albumin/Globulin Ratio 1.1 (1.1-2.2) Lipase (11-82) Units/L Urine Color (Yellow) Urine Clarity (Clear) Urine pH (5.0-8.0) pH Units Ur Specific [place] (1.010-1.025) Urine Protein (Neg-Trace) mg/dL Urine Glucose (UA) (Normal) mg/dL Urine Ketones (Negative) mg/dL Urine Blood (Negative) Urine Nitrite (Negative) Urine Bilirubin (Negative) Urine Urobilinogen (Normal) mg/dL Ur Leukocyte Esterase (Negative) Urine Microscopic RBC (0-3) per hpf Ur Culture Indicated? (NO) Salicylates (15.0-30.0) mg/dL Acetaminophen (10-20) mcg/mL Ur Drug Screen Interp Ethyl Alcohol < 10 (Less than 10) mg/dL 06/26/18 06/26/18 06/26/18 Range/Units 19:58 19:58 20:35 WBC (4.3-11.1) K/mcL RBC (4.19-5.50) M/mcL Hgb (12.9-16.9) g/dL Hct (37.5-50.1) % MCV (83.0-100.0) fL MCH (28.0-33.3) pg MCHC (31.6-35.5) g/dL RDW (11.5-14.5) % Plt Count (140-400) K/mcL MPV (9.4-12.4) fL Immature Gran % (0-4) % Seg Neutrophils % % Lymphocytes % % Monocytes % % Eosinophils % % Basophils % % Neutrophils # (1.6-8.9) K/mcL Lymphocytes # (0.6-4.6) K/mcL Monocytes # (0.0-1.3) K/mcL Eosinophils # (0.0-0.6) K/mcL Basophils # (0.0-0.2) K/mcL PT (9.4-12.1) Seconds INR APTT (26.0-36.0) Seconds Sample Site ABG pH (7.32-7.45) pH Units ABG pCO2 (35-45) mmHg ABG pO2 (85-104) mmHg ABG HCO3 (21-27) mEq/L ABG Total CO2 (20-26) mEq/L ABG O2 Saturation (95-98) % ABG Base Excess (-2 to 3) mEq/L Luis A Test O2 Delivery Device Sodium (136-145) mEq/L Potassium (3.5-5.1) mEq/L Chloride (98-107) mEq/L Carbon Dioxide (23-29) mEq/L BUN (8-23) mg/dL Creatinine (0.70-1.30) mg/dL Est GFR ( Amer) (> 60) Est GFR (Non-Af Amer) (> 60) BUN/Creatinine Ratio (6-26) Glucose (70-105) mg/dL Calculated Osmolality (280-300) Lactic Acid 1.3 (0.5-2.2) mmol/L Calcium (8.6-10.3) mg/dL Magnesium (1.6-2.6) mg/dL Total Bilirubin (0.3-1.0) mg/dL Direct Bilirubin (0.0-0.2) mg/dL Indirect Bilirubin (0.0-1.2) mg/dL AST (13-39) Units/L ALT (7-52) Units/L Alkaline Phosphatase (34-104) Units/L Ammonia (16-53) mcmol/L Troponin I (< 0.04) ng/mL Serum Total Protein (6.4-8.9) g/dL Albumin (3.5-5.7) g/dL Globulin (2.4-3.5) g/dL Albumin/Globulin Ratio (1.1-2.2) Lipase 9 L (11-82) Units/L Urine Color (Yellow) Urine Clarity (Clear) Urine pH (5.0-8.0) pH Units Ur Specific [place] (1.010-1.025) Urine Protein (Neg-Trace) mg/dL Urine Glucose (UA) (Normal) mg/dL Urine Ketones (Negative) mg/dL Urine Blood (Negative) Urine Nitrite (Negative) Urine Bilirubin (Negative) Urine Urobilinogen (Normal) mg/dL Ur Leukocyte Esterase (Negative) Urine Microscopic RBC (0-3) per hpf Ur Culture Indicated? (NO) Salicylates < 2.5 L (15.0-30.0) mg/dL Acetaminophen < 10 L (10-20) mcg/mL Ur Drug Screen Interp Ethyl Alcohol (Less than 10) mg/dL 06/26/18 06/26/18 Range/Units 21:28 21:28 WBC (4.3-11.1) K/mcL RBC (4.19-5.50) M/mcL Hgb (12.9-16.9) g/dL Hct (37.5-50.1) % MCV (83.0-100.0) fL MCH (28.0-33.3) pg MCHC (31.6-35.5) g/dL RDW (11.5-14.5) % Plt Count (140-400) K/mcL MPV (9.4-12.4) fL Immature Gran % (0-4) % Seg Neutrophils % % Lymphocytes % % Monocytes % % Eosinophils % % Basophils % % Neutrophils # (1.6-8.9) K/mcL Lymphocytes # (0.6-4.6) K/mcL Monocytes # (0.0-1.3) K/mcL Eosinophils # (0.0-0.6) K/mcL Basophils # (0.0-0.2) K/mcL PT (9.4-12.1) Seconds INR APTT (26.0-36.0) Seconds Sample Site ABG pH (7.32-7.45) pH Units ABG pCO2 (35-45) mmHg ABG pO2 (85-104) mmHg ABG HCO3 (21-27) mEq/L ABG Total CO2 (20-26) mEq/L ABG O2 Saturation (95-98) % ABG Base Excess (-2 to 3) mEq/L Luis A Test O2 Delivery Device Sodium (136-145) mEq/L Potassium (3.5-5.1) mEq/L Chloride (98-107) mEq/L Carbon Dioxide (23-29) mEq/L BUN (8-23) mg/dL Creatinine (0.70-1.30) mg/dL Est GFR ( Amer) (> 60) Est GFR (Non-Af Amer) (> 60) BUN/Creatinine Ratio (6-26) Glucose (70-105) mg/dL Calculated Osmolality (280-300) Lactic Acid (0.5-2.2) mmol/L Calcium (8.6-10.3) mg/dL Magnesium (1.6-2.6) mg/dL Total Bilirubin (0.3-1.0) mg/dL Direct Bilirubin (0.0-0.2) mg/dL Indirect Bilirubin (0.0-1.2) mg/dL AST (13-39) Units/L ALT (7-52) Units/L Alkaline Phosphatase (34-104) Units/L Ammonia (16-53) mcmol/L Troponin I (< 0.04) ng/mL Serum Total Protein (6.4-8.9) g/dL Albumin (3.5-5.7) g/dL Globulin (2.4-3.5) g/dL Albumin/Globulin Ratio (1.1-2.2) Lipase (11-82) Units/L Urine Color Red A (Yellow) Urine Clarity Turbid A (Clear) Urine pH 7.0 (5.0-8.0) pH Units Ur Specific [place] 1.015 (1.010-1.025) Urine Protein 100 H (Neg-Trace) mg/dL Urine Glucose (UA) Normal (Normal) mg/dL Urine Ketones Negative (Negative) mg/dL Urine Blood Large H (Negative) Urine Nitrite Negative (Negative) Urine Bilirubin Small H (Negative) Urine Urobilinogen 2.0 H (Normal) mg/dL Ur Leukocyte Esterase Negative (Negative) Urine Microscopic RBC TNTC H (0-3) per hpf Ur Culture Indicated? NO (NO) Salicylates (15.0-30.0) mg/dL Acetaminophen (10-20) mcg/mL Ur Drug Screen Interp See Below Ethyl Alcohol (Less than 10) mg/dL - Radiology Data Radiology results reviewed: Yes I reviewed the patient's radiology results. EXAMINATION: CT OF THE ABDOMEN AND PELVIS WITH CONTRAST 06/26/2018 9:15 pm TECHNIQUE: CT of the abdomen and pelvis was performed with the administration of intravenous contrast. Multiplanar reformatted images are provided for review. Dose modulation, iterative reconstruction, and/or weight based adjustment of the mA/kV was utilized to reduce the radiation dose to as low as reasonably achievable. COMPARISON: Prior studies including 06/16/2017 HISTORY: ORDERING SYSTEM PROVIDED HISTORY: abd pain Additional signs and symptoms: LOWER ABD. PAIN X 2 WEEKS Relevant Medical/Surgical History: GB,DIABETES, HTN, COPD, CAD 75 ml of ISOVUE 370 Altered mental status today, lower abdominal pain for 2 weeks. Initial study. History hypertension, cholecystectomy FINDINGS: Lower Chest: No basilar pulmonary consolidation. Organs: The liver, adrenal glands, spleen, pancreas, and kidneys show no acute abnormality. There is a stable 1.3 cm left adrenal gland nodule, considered benign as it is stable since 2012. There is a nonobstructing lower pole punctate left renal pelvic stone measuring 2-3 mm. The gallbladder is surgically absent. GI/Bowel: The bowel is normal in caliber and course without suspected thickening. Normal appendix. There is extensive descending and sigmoid colonic diverticulosis without evidence of active inflammation. Pelvis: The prostate gland is markedly enlarged measuring 6.5 cm in transverse dimension, indenting the urinary bladder base, present on prior studies. The urinary bladder is nondistended. Peritoneum/Retroperitoneum: Moderate calcified and noncalcified of abdominal aorta is identified. There is dilation of the infrarenal abdominal aorta measuring up to 3.2 cm, unchanged since 2018 studies. Bones/Soft Tissues: No acute or focal bony abnormality. No free fluid or adenopathy. There is increased density within the root of the mesentery in the right lower abdomen with associated small lymph nodes which measure up to 6 mm in short axis. No focal fluid collection. CT/CT abd pelvis w iv no oral IMPRESSION: 3.2 cm infrarenal abdominal aortic aneurysm. See below recommendation. Nonspecific increased attenuation and small lymph nodes within the mesenteric fat of the right lower quadrant, nonspecific. Findings can be seen with infectious inflammatory etiologies. Neoplastic process is considered unlikely given the lymph nodes are less than 1 cm in size. Extensive distal colonic diverticulosis without radiographic evidence of active inflammation. Left nephrolithiasis. Markedly enlarged prostate gland. RECOMMENDATIONS: 3.2 cm AAA Recommend follow-up every 3 years. Reference: J Vasc Surg 2009 Oct;50(4 Suppl):S2-49. D/ / Karyn Martinez Cha, MD / Karyn Martinez Cha, MD Interpreting Provider: Karyn Martinez Cha, MD - EKG Data EKG attestation: Yes I reviewed and interpreted this EKG. EKG results narrative: EKG interpreted by myself as sinus rhythm with rate of [address] elevation TPA Checklist - LKW: 3-4.5 hrs Add. Warnings/Precautions Patient/family understanding: The patient/family members have been counseled and understood the risk, benefit, and alternatives of treatment.
[2018-06-26] MEDS ORDERED: Isovue-370 500 ML BOTTLE IVP ONE (19:40)
[2018-06-26 19:54] LABS: ABG Base Excess 2 mEq/L (-2 to 3); ABG HCO3 27 mEq/L (21-27); ABG Oxygen Saturation 91 % (95-98); ABG PCO2 43 mmHg (35-45); ABG PH 7.41 pH Units (7.32-7.45); ABG PO2 60 mmHg (85-104); ABG TCO2 29 mEq/L (20-26)
[2018-06-26 20:07] LABS: Basophils % 0.3 %; Eosinophils % 0.2 %; Hematocrit 39.4 % (37.5-50.1); Hemoglobin 12.4 g/dL (12.9-16.9); Immature Granulocytes % 0.4 % (0-4); Lymphocytes # 0.5 K/mcL (0.6-4.6); Lymphocytes % 4.9 %; Mean Corpuscular HGB Conc 31.5 g/dL (31.6-35.5); Mean Corpuscular Hemoglobin 26.1 pg (28.0-33.3); Mean Corpuscular Volume 82.9 fL (83.0-100.0); Mean Platelet Volume 10.1 fL (9.4-12.4); Monocytes # 0.4 K/mcL (0.0-1.3); Neutrophils # 9.2 K/mcL (1.6-8.9); Platelet Count 223 K/mcL (140-400); Red Blood Count 4.75 M/mcL (4.19-5.50); Red Cell Distribution Width 13.5 % (11.5-14.5); Segmented Neutrophils % 90.2 %
[2018-06-26 20:15] LABS: INR 1.2; Prothrombin Time 13.7 Seconds (9.4-12.1)
[2018-06-26 20:18] LABS: Activated Partial Thrombo Time 31.4 Seconds (26.0-36.0)
[2018-06-26 20:28] LABS: Troponin I < 0.03 ng/mL (< 0.04)
[2018-06-26 20:33] LABS: Alanine Aminotransferase 7 Units/L (7-52); Albumin 3.5 g/dL (3.5-5.7); Albumin/Globulin Ratio 1.1 (1.1-2.2); Alkaline Phosphatase 72 Units/L (34-104); Aspartate Amino Transferase 10 Units/L (13-39); BUN/Creatinine Ratio 14 (6-26); Bilirubin,Direct 0.1 mg/dL (0.0-0.2); Bilirubin,Indirect 0.7 mg/dL (0.0-1.2); Bilirubin,Total 0.8 mg/dL (0.3-1.0); Blood Urea Nitrogen 13 mg/dL (8-23); Calcium 8.8 mg/dL (8.6-10.3); Carbon Dioxide 31 mEq/L (23-29); Chloride 97 mEq/L (98-107); Ethanol < 10 mg/dL (Less than 10); Globulin 3.2 g/dL (2.4-3.5); Glucose 221 mg/dL (70-105); Osmolality,Calculated 285 (280-300); Potassium 4.5 mEq/L (3.5-5.1); Sodium 134 mEq/L (136-145); Total Protein 6.7 g/dL (6.4-8.9); eGFR For Non-African Americans > 60 (> 60)
[2018-06-26 21:04] LABS: Acetaminophen < 10 mcg/mL (10-20); Salicylate < 2.5 mg/dL (15.0-30.0)
[2018-06-26 21:32] LABS: Bilirubin,Urine Small (Negative); Blood,Urine Large (Negative); Clarity,Urine Turbid (Clear); Color,Urine Red (Yellow); Glucose,Urine (UA) Normal (Normal); Ketones,Urine Negative (Negative); Leukocyte Esterase,Urine Negative (Negative); Nitrite,Urine Negative (Negative); Protein,Urine 100 mg/dL (Neg-Trace); Specific Gravity,Urine 1.015 (1.010-1.025)
[2018-06-26 21:47] LABS: RBC,Urine TNTC per hpf (0-3)
[2018-06-26 23:23] LABS: Amphetamine Screen,Urine Negative ng/mL (Cutoff=1000); Barbiturate Screen,Urine Negative ng/mL (Cutoff=200); Benzodiazepines Screen,Urine Positive ng/mL (Cutoff=200); Cannabinoid Screen,Urine Negative ng/mL (Cutoff = 50); Cocaine Screen,Urine Negative ng/mL (Cutoff= 300); Opiate Screen,Urine Negative ng/mL (Cutoff=300); Phencyclidine Screen,Urine Negative ng/mL (Cutoff=25)
[2018-06-26] MEDS ORDERED: Acetaminophen 325 MG TABLET PO PRN (23:31)
[2018-06-26] MEDS ORDERED: Ibuprofen 400 MG TABLET PO PRN (23:31)
[2018-06-26] MEDS ORDERED: Naloxone 0.4 MG/ML INJ IVP PRN (23:31)
[2018-06-26] MEDS ORDERED: *HR* Promethazine 25 MG/ML VIAL IVP PRN (23:31)
[2018-06-26] MEDS ORDERED: MOM Conc 10 ML UD.LIQ PO PRN (23:31)
[2018-06-27 06:06] LABS: Basophils % 0.7 %; Eosinophils % 0.7 %; Hematocrit 36.2 % (37.5-50.1); Hemoglobin 11.5 g/dL (12.9-16.9); Immature Granulocytes % 0.8 % (0-4); Lymphocytes # 0.7 K/mcL (0.6-4.6); Lymphocytes % 10.6 %; Mean Corpuscular HGB Conc 31.8 g/dL (31.6-35.5); Mean Corpuscular Hemoglobin 26.1 pg (28.0-33.3); Mean Corpuscular Volume 82.3 fL (83.0-100.0); Mean Platelet Volume 10.4 fL (9.4-12.4); Monocytes # 0.5 K/mcL (0.0-1.3); Monocytes % 7.5 %; Neutrophils # 4.9 K/mcL (1.6-8.9); Platelet Count 217 K/mcL (140-400); Red Cell Distribution Width 13.7 % (11.5-14.5); Segmented Neutrophils % 79.7 %
[2018-06-27 06:32] LABS: BUN/Creatinine Ratio 18 (6-26); Blood Urea Nitrogen 17 mg/dL (8-23); Calcium 8.6 mg/dL (8.6-10.3); Carbon Dioxide 30 mEq/L (23-29); Chloride 101 mEq/L (98-107); Glucose 116 mg/dL (70-105); Osmolality,Calculated 285 (280-300); Sodium 136 mEq/L (136-145); eGFR For Non-African Americans > 60 (> 60)
[2018-06-27 07:02] VITALS: BP 116/60
[2018-06-27] MEDS ORDERED: Loratadine 10 MG TABLET PO SCH (09:00)
[2018-06-27] MEDS ORDERED: *HR* Metformin 500 MG TABLET PO SCH (09:00)
[2018-06-27] MEDS ORDERED: diazePAM 5 MG TABLET PO SCH (09:00)
[2018-06-27] MEDS ORDERED: Lisinopril 20 MG TABLET PO SCH (09:00)
[2018-06-27] MEDS ORDERED: Nicotine 21 MG PATCH.TD24 TD SCH (09:30)
--- NOTE | 2018-06-27 11:32 | Internal Med History&Physical ---
Date of Encounter: 06/27/18 Time of Encounter: 11:28 Assessment and Plan (1) Altered mental status, unspecified Current visit: Yes Status: Resolved Appears resolved. Unclear etiology. Possible benzodiazepine-induced. Mental status has been normal throughout hospital stay with negative work-up. Qualifiers: Altered mental status type: disorientation Qualified Code(s): R41.0 - Disorientation, unspecified (2) Vertigo Current visit: Yes Status: Acute Appears related to BPPV. Suellen maneuvers provided. Meclizine PRN. Recommend f/u with PCP in 1 week. Recommend vestibular therapy referral if symptoms persist. (3) AAA (abdominal aortic aneurysm) Current visit: Yes Status: Chronic 3.[address] Recommend repeat CT in 3 years to document stabilty. Pt is aware. Qualifiers: Presence of rupture: without rupture Qualified Code(s): I71.4 - Abdominal aortic aneurysm, without rupture (4) Mesenteric lymphadenopathy Current visit: Yes Status: Acute Mild. Non-specific. Likely related to recent gastroenteritis. Pt should have sto ol studies if symptoms persist. Pt is overdue for screening colonoscopy which was recommended to patient. (5) Hematuria Current visit: Yes Status: Acute Moderate. No evidence of infection. Recommend repeat UA in 2 weeks. If hematuria persists, urology referral recommended. Pt is aware. Qualifiers: Hematuria type: asymptomatic microscopic Qualified Code(s): R31.21 - Asympt omatic microscopic hematuria Internal Medicine - H&P: HPI Chief complaint: vertigo Admitted From: Home Plans for Post Hospital Care: Home History of present illness: Mr. Wilson is a 72 year old male that presented to ED last evening after being found somewhat confused [place] a gas station. He was evaluated in ED and complained of only a few week history of intermittent vertigo in which his surroundings would appear to spin for 20-40 seconds following head position changes. Minimal to no vertigo when head at rest. Pt reports history of similar episodes in past. He denies any confusion and has demonstrated normal mental status since being in the ED. He has also endorsed some abdominal cramping and diarrhea over last few weeks which appears improved as well. Work up was negative outside of non- specific mild mesenteric lymphadenopathy, 3.2 cm AAA, and moderate hematuria. Pt has been well overnight without any new symptoms. No diarrhea. He is tolerating po. He continues to have limited vertigo with head position changes. Past Med Surg Social Fam HX - Past Medical History Medical history: arthritis, COPD, coronary artery disease, diabetes, GERD, hyperlipidemia, hypertension, myocardial infarction, osteoporosis, other Additional medical history: [place] 2014 Psychiatric history: anxiety, depression - Past Surgical History Surgical History: angioplasty/stent, cholecystectomy - Social History Smoking Status: Current every day smoker Packs per day: 2 Smokeless Tobacco Status: No Alcohol use: none Drug use: none - Family History Father Hx Family Cardiac Disorders: Yes (heart attack) Hx Family Respiratory Disorders: Yes (TB) Mother Adopted: No Hx Family Endocrine Disorder: Yes (DM) Internal Medicine - H&P: Meds Lisinopril [Zestril] 10 mg PO DAILY 05/09/17 [History] Metformin HCl [Glucophage] 1,000 mg PO BID 05/09/17 [History] diazePAM [Valium] 5 mg PO DAILY 30 Days #15 10/04/17 [Rx] Albuterol Sulfate [Albuterol Inhaler] 2 puff IH Q6HR PRN #1 hfa.aer.ad 06/20/18 [Rx] Azithromycin [Azithromycin 6-Tab Pack] 250 mg PO PER PKG DI #6 tab 06/20/18 [Rx] Brompheniramine/Pseudoephed/Dm [Bromfed Dm Cough Syrup] 5 ml PO Q4-6H PRN #120 syrup 06/20/18 [Rx] Cetirizine HCl [Zyrtec] 10 mg PO DAILY #14 tablet 06/20/18 [Rx] Meclizine HCl [Verticalm] 25 mg PO TID PRN #20 tablet 06/27/18 [Rx] Allergy/AdvReac Type Severity Reaction Status Date / Time prednisone AdvReac Mild See Verified 06/16/18 13:38 Comments All Systems PM: A 10-system review of systems was performed and is negative for pertinent findings except as documented above in the HPI. - Constitutional Vitals: Temp Pulse Resp BP Pulse Ox 99.3 F 81 16 116/60 95 06/27/18 06:58 06/27/18 06:58 06/27/18 06:58 06/27/18 06:58 06/27/18 06:58 Exam: Gen: Lying in bed, NAD HEENT: NC, AT Neck: Trachea midline, no mass Pulm: No respiratory distress, CTAB CV: Normal S1 and S2, RRR Abdomen: Soft, ND, NT Ext: No C/C/E Neuro: No appreciable motor/sensor deficits Skin: Warm and dry, no rash Psych: A&Ox3 Internal Med - H&P Results - Labs CBC & Chem 7: 06/27/18 05:13 06/27/18 05:13 Labs: Short CBC 06/26/18 06/27/18 Range/Units 19:56 05:13 WBC 10.2 6.2 (4.3-11.1) K/mcL Hgb 12.4 L 11.5 L (12.9-16.9) g/dL Hct 39.4 36.2 L (37.5-50.1) % Plt Count 223 217 (140-400) K/mcL Neutrophils # 9.2 H 4.9 (1.6-8.9) K/mcL BMP 06/26/18 06/27/18 19:56 05:13 Sodium 134 L 136 Potassium 4.5 4.0 Chloride 97 L 101 Carbon Dioxide 31 H 30 H BUN 13 17 Creatinine 0.94 0.93 Glucose 221 H 116 H Calcium 8.8 8.6 Cardiac Enzymes 06/26/18 Range/Units 19:56 Troponin I < 0.03 (< 0.04) ng/mL Liver Function 06/26/18 Range/Units 19:56 Total Bilirubin 0.8 (0.3-1.0) mg/dL Direct Bilirubin 0.1 (0.0-0.2) mg/dL AST 10 L (13-39) Units/L ALT 7 (7-52) Units/L Alkaline Phosphatase 72 (34-104) Units/L Albumin 3.5 (3.5-5.7) g/dL Urine 06/26/18 Range/Units 21:28 Urine Color Red A (Yellow) Urine Clarity Turbid A (Clear) Urine pH 7.0 (5.0-8.0) pH Units Ur Specific [place] 1.015 (1.010-1.025) Urine Protein 100 H (Neg-Trace) mg/dL Urine Glucose (UA) Normal (Normal) mg/dL - ABG Interpretation ABG results: 06/26/18 19:51 ABG pH 7.41 ABG pCO2 43 ABG pO2 60 L ABG HCO3 27 ABG Total CO2 29 H ABG O2 Saturation 91 L ABG Base Excess 2 - Impressions ITS Impressions Chest X-Ray 06/26/18 19:31 IMPRESSION: No acute process. D/ / Riley Sneed MD / Riley Sneed MD Interpreting Provider: Riley Sneed MD Head CT 06/26/18 19:32 IMPRESSION: No acute intracranial abnormality. D/ / Karyn Martinez Cha, MD / Karyn Martinez Cha, MD Interpreting Provider: Karyn Martinez Cha, MD Abdomen/Pelvis CT 06/26/18 19:40 IMPRESSION: 3.2 cm infrarenal abdominal aortic aneurysm. See below recommendation. Nonspecific increased attenuation and small lymph nodes within the mesenteric fat of the right lower quadrant, nonspecific. Findings can be seen with infectious inflammatory etiologies. Neoplastic process is considered unlikely given the lymph nodes are less than 1 cm in size. Extensive distal colonic diverticulosis without radiographic evidence of active inflammation. Left nephrolithiasis. Markedly enlarged prostate gland. RECOMMENDATIONS: 3.2 cm AAA Recommend follow-up every 3 years. Reference: J Vasc Surg 2009 Oct;50(4 Suppl):S2-49. D/ / Karyn Martinez Cha, MD / Karyn Martinez Cha, MD Interpreting Provider: Karyn Martinez Cha, MD
--- NOTE | 2018-06-27 13:41 | Discharge Summary ---
- NOTES TO OUTPATIENT PROVIDER Notes to Outpatient Provider: 1) Mesenteric lymphadenopathy on CT- Stool studies recommeded if diarrhea returns; colonoscopy recommended for screening purposes. 2) Recommend urology referral if hematuria persists. 3) Repeat imaging of 3.2 cm AAA recommended in 3 years. Orders not resulted at time of discharge: Pending orders 06/26/18 19:31 ECG 12 lead ECG [ECG] Stat 06/26/18 19:52 Culture,Blood [BC] Stat Date of Encounter: 06/27/18 Time of Encounter: 13:39 - Discharge Diagnosis (1) Altered mental status, unspecified Priority: Primary Status: Resolved Qualifiers: Altered mental status type: disorientation Qualified Code(s): R41.0 - Disorientation, unspecified (2) Vertigo Priority: Secondary Status: Acute (3) AAA (abdominal aortic aneurysm) Priority: Secondary Status: Chronic Qualifiers: Presence of rupture: without rupture Qualified Code(s): I71.4 - Abdominal aortic aneurysm, without rupture (4) Mesenteric lymphadenopathy Priority: Secondary Status: Acute (5) Hematuria Priority: Secondary Status: Acute Qualifiers: Hematuria type: asymptomatic microscopic Qualified Code(s): R31.21 - Asymptomatic microscopic hematuria Hospital course: Mr. Wilson is a 72 year old male that presented to ED with AMS and vertigo. Work up was negative outside of non-specific mild mesenteric lymphadenopathy, 3.2 cm AAA, and moderate hematuria. Pt had uneventful hospital stay and was asymptomatic outside of persistent positional vertigo for which pt was given meclizine and instructions for marilee maneuvers. Recommend PCP f/u in next week with referral for vestibular therapy if symptoms fail to improve. UA recommended in 2 weeks to document resolution of hematuria. Pt has been advised to proceed with screening colonoscopy and to discuss GI symptoms with PCP if symptoms re- occur. Discharge discussed with: patient, nurse - Time Spent with Patient Total time spent providing and/or coordinating discharge services: Greater than 30 minutes - Discharge Medications Prescriptions: RX: Meclizine HCl [Verticalm] 25 mg PO TID PRN #20 tablet PRN Reason: Dizziness Home Medications: RX: Lisinopril [Zestril] 10 mg PO DAILY 05/09/17 [History] RX: Metformin HCl [Glucophage] 1,000 mg PO BID 05/09/17 [History] RX: diazePAM [Valium] 5 mg PO DAILY 30 Days #15 10/04/17 [Rx] RX: Albuterol Sulfate [Albuterol Inhaler] 2 puff IH Q6HR PRN #1 hfa.aer.ad 06/20/18 [Rx] RX: Azithromycin [Azithromycin 6-Tab Pack] 250 mg PO PER PKG DI #6 tab 06/20/18 [Rx] RX: Brompheniramine/Pseudoephed/Dm [Bromfed Dm Cough Syrup] 5 ml PO Q4-6H PRN #120 syrup 06/20/18 [Rx] RX: Cetirizine HCl [Zyrtec] 10 mg PO DAILY #14 tablet 06/20/18 [Rx] RX: Meclizine HCl [Verticalm] 25 mg PO TID PRN #20 tablet 06/27/18 [Rx] Allergies/Adverse Reactions: Allergy/AdvReac Type Severity Reaction Status Date / Time prednisone AdvReac Mild See Verified 06/16/18 13:38 Comments Date of admission: 06/26/18 22:32 Primary care physician: Melanie Garcia CNP Consults: 06/27/18 00:02 Consult to Nutrition [CONS] Routine Comment: Consulting Provider: NUTRITION Reason for Dietary Consult: MST Score Discharging clinician: Arnie Sneed Anticipated date of discharge: 06/27/18 - Constitutional Vitals: Temp Pulse Resp BP Pulse Ox 99.3 F 81 16 116/60 95 06/27/18 06:58 06/27/18 06:58 06/27/18 06:58 06/27/18 06:58 06/27/18 06:58 Exam: Gen: Lying in bed, NAD HEENT: NC, AT Neck: Trachea midline, no mass Pulm: No respiratory distress, CTAB CV: Normal S1 and S2, RRR Abdomen: Soft, ND, NT Ext: No C/C/E Neuro: No appreciable motor/sensor deficits Skin: Warm and dry, no rash Psych: A&Ox3 - Patient Status Disposition: Home, Self-Care Condition: Good Functional capacity at discharge: independent ambulation Overall status at discharge: patient is back to baseline - Discharge Instructions Instructions: Peripheral Vascular Disorders (DC) Follow Up With: Melanie Garcia CNP [Primary Care Provider] - 1 week - Diet and Activity Activity: resume usual activities as tolerated Diet: advance to your usual diet
--- NOTE | 2018-07-01 00:34 | Electrocardiograph Report ---
[place] [id number] Test Date: 2018-06-26 Pat Name: Javan Wilson Department: EDP-16 Room: [facility] Gender: M [employer]: : [id number] Requested By: Jami Castellanos Order Number: [id number] Reading MD: Mireille Carrion Measurements Intervals [place] Rate: 86 P: 89 NH: 172 QRS: 83 QRSD: 110 T: 147 QT: 366 QTc: 438 Interpretive Statements Sinus rhythm Nonspecific ST-T wave changes Electronically Signed On 07-01-2018 0:33:05 EST by Mireille Carrion
== END 2018-06-27 15:00 | disposition home or self-care (01) ==
LOC: EMEROOPIK 19:30 → INPPIK 19:30
PROVIDERS: ADMIT Internal Medicine; ATTEND Internal Medicine

== ENCOUNTER 2021-04-23 03:15 | Inpatient (IN) ==
[2021-04-23] MEDS ORDERED: 0.9 % Sodium Chloride 1,000 ML IVC ONE ×2 (04:04→05:47)
[2021-04-23 04:42] LABS: Basophils % 0.2 %; Eosinophils # 0.1 K/mcL (0.0-0.6); Eosinophils % 0.3 %; Hematocrit 38.1 % (37.5-50.1); Hemoglobin 11.7 g/dL (12.9-16.9); Immature Granulocytes % 0.6 % (0-4); Lymphocytes # 0.5 K/mcL (0.6-4.6); Lymphocytes % 2.4 %; Mean Corpuscular HGB Conc 30.7 g/dL (31.6-35.5); Mean Corpuscular Hemoglobin 25.8 pg (28.0-33.3); Mean Corpuscular Volume 83.9 fL (83.0-100.0); Monocytes # 0.9 K/mcL (0.0-1.3); Monocytes % 4.7 %; Neutrophils # 18.3 K/mcL (1.6-8.9); Platelet Count 309 K/mcL (140-400); Red Blood Count 4.54 M/mcL (4.19-5.50); Red Cell Distribution Width 14.1 % (11.5-14.5); Segmented Neutrophils % 91.8 %; White Blood Count 19.9 K/mcL (4.3-11.1)
[2021-04-23 04:48] LABS: VBG HCO3 27 mEq/L (21-27); VBG PCO2 45 mmHg (41-51); VBG PH 7.39 pH Units (7.32-7.42); VBG PO2 40 mmHg (25-50)
[2021-04-23 05:02] LABS: Troponin I 0.03 ng/mL (< 0.04)
[2021-04-23 05:06] LABS: BUN/Creatinine Ratio 20 (6-26); Blood Urea Nitrogen 21 mg/dL (8-23); Calcium 8.8 mg/dL (8.6-10.3); Carbon Dioxide 29 mEq/L (23-29); Chloride 102 mEq/L (98-107); Glucose 348 mg/dL (70-105); Osmolality,Calculated 305 (280-300); Potassium 4.8 mEq/L (3.5-5.1); Sodium 139 mEq/L (136-145); eGFR For African Americans > 60 (> 60); eGFR For Non-African Americans > 60 (> 60)
[2021-04-23] MEDS ORDERED: Isovue-370 500 ML BOTTLE IVP ONE (05:48)
[2021-04-23 05:49] LABS: Bilirubin,Urine Negative (Negative); Blood,Urine Negative (Negative); Color,Urine Yellow (Yellow); Glucose,Urine (UA) >=1000 mg/dL (Normal); Ketones,Urine Trace mg/dL (Negative); Leukocyte Esterase,Urine Negative (Negative); Nitrite,Urine Negative (Negative); Protein,Urine 100 mg/dL (Neg-Trace); Urobilinogen,Urine Normal (Normal)
[2021-04-23 06:00] LABS: Clarity,Urine Hazy (Clear)
[2021-04-23 06:16] LABS: Mucus,Urine Many per lpf (None-Few); Squamous Epithelial Cell,Urine Few per hpf (None-Few)
[2021-04-23 06:18] LABS: Bacteria,Urine Many per hpf (None-Few); RBC,Urine 0-3 per hpf (0-3)
[2021-04-23 06:20] LABS: Granular Casts,Urine Few per lpf (None Seen)
[2021-04-23] MEDS ORDERED: cefTRIAXone 1,000 MG in Water for inj. (sterile) 10 ML IVP ONE (06:41)
[2021-04-23] MEDS ORDERED: Azithromycin 500 MG in 0.9 % Sodium Chloride 250 ML IVPB ONE (07:15)
[2021-04-23] MEDS ORDERED: Naloxone 0.4 MG/ML INJ IVP PRN (08:14)
[2021-04-23] MEDS ORDERED: Acetaminophen 325 MG TABLET PO PRN (08:14)
[2021-04-23] MEDS ORDERED: Ondansetron 4 MG/2 ML VIAL IVP PRN (08:14)
[2021-04-23] MEDS ORDERED: *HR* Dextrose 50 % in Water (Syg) 50 ML SYRINGE IVP PRN (08:16)
[2021-04-23] MEDS ORDERED: Dextrose Gel 15 GM/37.5 ML TUBE PO PRN ×2 (08:16)
[2021-04-23] MEDS ORDERED: D5% in Water 1,000 ML IVC PRN (08:16)
[2021-04-23] MEDS: Ipratropium/Albuterol Neb 3 ML IH PRN (12:33)
[2021-04-23] MEDS ORDERED: Sennosides 8.6 MG TABLET PO PRN (13:55)
[2021-04-23] MEDS: Nicotine 21 MG PATCH.TD24 TD SCH (15:06)
[2021-04-23] MEDS: 0.9 % Sodium Chloride 1,000 ML IVC SCH (15:07)
[2021-04-23] MEDS: Insulin LISPRO 300 UNITS/3 ML VIAL SUBQ SCH ×3 (15:24→21:20)
[2021-04-23] MEDS: *HR* OxyCODONE/APAP 10/325 TABLET PO PRN (20:04)
[2021-04-23] MEDS: Mirtazapine 15 MG TABLET PO SCH (20:04)
[2021-04-23] MEDS: diazePAM 5 MG TABLET PO PRN (20:17)
[2021-04-23] MEDS: Budesonide/Formoterol 160/4.5 1 PUFF INH IH SCH (21:53)
[2021-04-24] MEDS: 0.9 % Sodium Chloride 1,000 ML IVC SCH (03:07)
[2021-04-24] MEDS: *HR* OxyCODONE/APAP 10/325 TABLET PO PRN ×3 (05:04→21:17)
[2021-04-24 07:06] LABS: Basophils % 0.4 %; Eosinophils # 0.3 K/mcL (0.0-0.6); Hematocrit 32.4 % (37.5-50.1); Hemoglobin 9.7 g/dL (12.9-16.9); Immature Granulocytes % 0.6 % (0-4); Lymphocytes # 1.4 K/mcL (0.6-4.6); Lymphocytes % 12.5 %; Mean Corpuscular HGB Conc 29.9 g/dL (31.6-35.5); Mean Corpuscular Hemoglobin 25.6 pg (28.0-33.3); Mean Corpuscular Volume 85.5 fL (83.0-100.0); Mean Platelet Volume 10.4 fL (9.4-12.4); Monocytes # 0.7 K/mcL (0.0-1.3); Monocytes % 6.8 %; Neutrophils # 8.3 K/mcL (1.6-8.9); Platelet Count 261 K/mcL (140-400); Red Blood Count 3.79 M/mcL (4.19-5.50); Red Cell Distribution Width 14.2 % (11.5-14.5); Segmented Neutrophils % 76.7 %; White Blood Count 10.8 K/mcL (4.3-11.1)
[2021-04-24 07:25] LABS: BUN/Creatinine Ratio 15 (6-26); Blood Urea Nitrogen 14 mg/dL (8-23); Calcium 8.1 mg/dL (8.6-10.3); Carbon Dioxide 30 mEq/L (23-29); Chloride 106 mEq/L (98-107); Glucose 121 mg/dL (70-105); Magnesium 1.3 mg/dL (1.6-2.6); Osmolality,Calculated 292 (280-300); Potassium 4.3 mEq/L (3.5-5.1); Sodium 140 mEq/L (136-145); eGFR For African Americans > 60 (> 60); eGFR For Non-African Americans > 60 (> 60)
[2021-04-24] MEDS: Budesonide/Formoterol 160/4.5 1 PUFF INH IH SCH ×2 (09:01→21:55)
[2021-04-24] MEDS: Insulin LISPRO 300 UNITS/3 ML VIAL SUBQ SCH ×4 (09:13→21:12)
[2021-04-24] MEDS: Nicotine 21 MG PATCH.TD24 TD SCH (09:28)
[2021-04-24] MEDS: lisinopriL 5 MG TABLET PO SCH (09:28)
[2021-04-24] MEDS: cefTRIAXone 2,000 MG in 0.9 % Sodium Chloride Mini Bag 100 ML IVPB SCH (09:29)
[2021-04-24] MEDS: Azithromycin 500 MG in 0.9 % Sodium Chloride 250 ML IVPB SCH (09:35)
[2021-04-24] MEDS: Ipratropium/Albuterol Neb 3 ML IH PRN (14:41)
[2021-04-24 18:16] LABS: Adenovirus Not Detected (Not Detect); Bordetella Pertussis Not Detected (Not Detect); Chlamydophila pneumoniae Not Detected (Not Detect); Coronavirus 229E Not Detected (Not Detect); Coronavirus HKU1 Not Detected (Not Detect); Coronavirus NL63 Not Detected (Not Detect); Coronavirus OC43 Not Detected (Not Detect); Human Metapneumovirus Not Detected (Not Detect); Human Rhinovirus/Enterovirus Not Detected (Not Detect); Influenza A Subtype 2009 H1 Not Detected (Not Detect); Influenza B Not Detected (Not Detect); Mycoplasma pneumoniae Not Detected (Not Detect); Parainfluenza Virus 1 Not Detected (Not Detect); Parainfluenza Virus 2 Not Detected (Not Detect); Parainfluenza Virus 3 Not Detected (Not Detect); Parainfluenza Virus 4 Not Detected (Not Detect); Respiratory Syncytial Virus Not Detected (Not Detect); SARS-CoV-2 Not Detected (Not Detect)
[2021-04-24] MEDS: Mirtazapine 15 MG TABLET PO SCH (21:16)
[2021-04-24] MEDS: diazePAM 5 MG TABLET PO PRN (21:17)
[2021-04-25 05:44] LABS: Basophils # 0.1 K/mcL (0.0-0.2); Basophils % 0.6 %; Eosinophils # 0.3 K/mcL (0.0-0.6); Eosinophils % 3.2 %; Hematocrit 31.6 % (37.5-50.1); Hemoglobin 9.3 g/dL (12.9-16.9); Immature Granulocytes % 0.7 % (0-4); Lymphocytes # 1.1 K/mcL (0.6-4.6); Lymphocytes % 13.7 %; Mean Corpuscular HGB Conc 29.4 g/dL (31.6-35.5); Mean Corpuscular Hemoglobin 25.5 pg (28.0-33.3); Mean Corpuscular Volume 86.6 fL (83.0-100.0); Mean Platelet Volume 10.6 fL (9.4-12.4); Monocytes # 0.6 K/mcL (0.0-1.3); Monocytes % 6.8 %; Neutrophils # 6.2 K/mcL (1.6-8.9); Platelet Count 242 K/mcL (140-400); Red Blood Count 3.65 M/mcL (4.19-5.50); White Blood Count 8.2 K/mcL (4.3-11.1)
[2021-04-25] MEDS: *HR* Enoxaparin 40 MG/0.4 ML SYRINGE SQ SCH (05:53)
[2021-04-25 06:01] LABS: BUN/Creatinine Ratio 14 (6-26); Blood Urea Nitrogen 14 mg/dL (8-23); Calcium 8.2 mg/dL (8.6-10.3); Carbon Dioxide 26 mEq/L (23-29); Chloride 107 mEq/L (98-107); Glucose 115 mg/dL (70-105); Osmolality,Calculated 291 (280-300); Potassium 4.8 mEq/L (3.5-5.1); Sodium 140 mEq/L (136-145); eGFR For African Americans > 60 (> 60); eGFR For Non-African Americans > 60 (> 60)
[2021-04-25] MEDS: Insulin LISPRO 300 UNITS/3 ML VIAL SUBQ SCH ×4 (09:20→20:14)
[2021-04-25] MEDS: lisinopriL 5 MG TABLET PO SCH (09:22)
[2021-04-25] MEDS: Nicotine 21 MG PATCH.TD24 TD SCH (09:22)
[2021-04-25] MEDS: Azithromycin 500 MG in 0.9 % Sodium Chloride 250 ML IVPB SCH (09:42)
[2021-04-25] MEDS: diazePAM 5 MG TABLET PO PRN ×2 (09:42→22:47)
[2021-04-25] MEDS: *HR* OxyCODONE/APAP 10/325 TABLET PO PRN ×3 (09:42→20:12)
[2021-04-25] MEDS: Budesonide/Formoterol 160/4.5 1 PUFF INH IH SCH (09:53)
[2021-04-25] MEDS: cefTRIAXone 2,000 MG in 0.9 % Sodium Chloride Mini Bag 100 ML IVPB SCH (11:47)
[2021-04-25] MEDS: Sennosides/Docusate Sodium TABLET PO SCH ×2 (15:10→20:12)
[2021-04-25] MEDS: Mirtazapine 15 MG TABLET PO SCH (20:13)
[2021-04-26] MEDS: Budesonide/Formoterol 160/4.5 1 PUFF INH IH SCH ×4 (01:16→22:06)
[2021-04-26] MEDS: *HR* Enoxaparin 40 MG/0.4 ML SYRINGE SQ SCH (06:04)
[2021-04-26] MEDS: Insulin LISPRO 300 UNITS/3 ML VIAL SUBQ SCH ×3 (11:31→19:01)
[2021-04-26] MEDS: lisinopriL 5 MG TABLET PO SCH (11:37)
[2021-04-26] MEDS: Sennosides/Docusate Sodium TABLET PO SCH ×2 (11:37→19:56)
[2021-04-26] MEDS: Nicotine 21 MG PATCH.TD24 TD SCH (11:37)
[2021-04-26] MEDS: Azithromycin 500 MG in 0.9 % Sodium Chloride 250 ML IVPB SCH (11:39)
[2021-04-26] MEDS: *HR* OxyCODONE/APAP 10/325 TABLET PO PRN ×2 (11:47→19:56)
[2021-04-26] MEDS: diazePAM 5 MG TABLET PO PRN (11:48)
[2021-04-26] MEDS: cefTRIAXone 2,000 MG in 0.9 % Sodium Chloride Mini Bag 100 ML IVPB SCH (13:28)
[2021-04-26] MEDS: Mirtazapine 15 MG TABLET PO SCH (19:56)
[2021-04-26 22:27] VITALS: RESP 16
[2021-04-27] MEDS: Insulin LISPRO 300 UNITS/3 ML VIAL SUBQ SCH ×3 (00:12→14:04)
[2021-04-27] MEDS: *HR* Enoxaparin 40 MG/0.4 ML SYRINGE SQ SCH (05:51)
[2021-04-27 07:03] LABS: Basophils % 0.6 %; Eosinophils # 0.3 K/mcL (0.0-0.6); Eosinophils % 4.3 %; Hematocrit 31.6 % (37.5-50.1); Hemoglobin 9.7 g/dL (12.9-16.9); Immature Granulocytes % 1.1 % (0-4); Lymphocytes # 1.1 K/mcL (0.6-4.6); Lymphocytes % 17.5 %; Mean Corpuscular HGB Conc 30.7 g/dL (31.6-35.5); Mean Corpuscular Hemoglobin 25.5 pg (28.0-33.3); Mean Corpuscular Volume 82.9 fL (83.0-100.0); Mean Platelet Volume 10.2 fL (9.4-12.4); Monocytes # 0.4 K/mcL (0.0-1.3); Monocytes % 6.8 %; Neutrophils # 4.5 K/mcL (1.6-8.9); Platelet Count 317 K/mcL (140-400); Red Blood Count 3.81 M/mcL (4.19-5.50); Red Cell Distribution Width 13.5 % (11.5-14.5); Segmented Neutrophils % 69.7 %; White Blood Count 6.5 K/mcL (4.3-11.1)
[2021-04-27 07:10] LABS: BUN/Creatinine Ratio 14 (6-26); Blood Urea Nitrogen 13 mg/dL (8-23); Calcium 8.5 mg/dL (8.6-10.3); Carbon Dioxide 31 mEq/L (23-29); Chloride 103 mEq/L (98-107); Glucose 98 mg/dL (70-105); Osmolality,Calculated 288 (280-300); Potassium 4.5 mEq/L (3.5-5.1); Sodium 139 mEq/L (136-145); eGFR For African Americans > 60 (> 60); eGFR For Non-African Americans > 60 (> 60)
[2021-04-27 09:10] VITALS: BP 132/60; PULSE 80; TEMP 98.8
[2021-04-27 09:20] VITALS: O2SAT 92
[2021-04-27] MEDS: lisinopriL 5 MG TABLET PO SCH (09:22)
[2021-04-27] MEDS: *HR* OxyCODONE/APAP 10/325 TABLET PO PRN (09:23)
[2021-04-27] MEDS: Nicotine 21 MG PATCH.TD24 TD SCH (09:23)
[2021-04-27] MEDS: Azithromycin 500 MG in 0.9 % Sodium Chloride 250 ML IVPB SCH (09:24)
[2021-04-27] MEDS: Sennosides/Docusate Sodium TABLET PO SCH (09:30)
[2021-04-27] MEDS: diazePAM 5 MG TABLET PO PRN (09:30)
[2021-04-27] MEDS: Budesonide/Formoterol 160/4.5 1 PUFF INH IH SCH (11:17)
[2021-04-27] MEDS: cefTRIAXone 2,000 MG in 0.9 % Sodium Chloride Mini Bag 100 ML IVPB SCH (11:26)
== END 2021-04-27 17:59 | disposition home or self-care (01) | DRG 194 ==
LOC: INPPIK 03:15 → EMEROOPIK 03:15 → INPPIK 09:09
PROVIDERS: ADMIT Internal Medicine; ATTEND Internal Medicine